=== PATIENT | male | born 1960 | race Caucasian/White ===

== ENCOUNTER → 2017-01-10 | Day surgery (SDC) | payer BC ==
[~2017-01-10] MED LIST: ALLEGRA ALLERGY60 MG PO; FLOVENT 110 MC7.9 GM INH; LISINOPRIL40 MG PO; MIRAPEX1.5 MG PO; SELEGILINE HCL5 M1 PO; SIMVASTATIN10 MG PO; VITAMIN D22000 UNIT PO
== END | disposition home or self-care (01) ==
LOC: OR 06:28
PROVIDERS: Surgery
PROC: 0DJD8ZZ Inspection of Lower Intestinal Tract, Via Natural or Artificial Opening Endoscopic (ICD-10-PCS; 2017-01-10)
PROC: 0DB38ZX Excision of Lower Esophagus, Via Natural or Artificial Opening Endoscopic, Diagnostic (ICD-10-PCS; principal; 2017-01-10 07:30)
PROC: 0DB68ZX Excision of Stomach, Via Natural or Artificial Opening Endoscopic, Diagnostic (ICD-10-PCS; 2017-01-10 07:30)
DX: Z12.11 Encounter for screening for malignant neoplasm of colon (principal); K92.0 Hematemesis; K22.10 Ulcer of esophagus without bleeding; K57.30 Diverticulosis of large intestine without perforation or abscess without bleeding; K44.9 Diaphragmatic hernia without obstruction or gangrene; I10 Essential (primary) hypertension; K21.9 Gastro-esophageal reflux disease without esophagitis; G43.909 Migraine, unspecified, not intractable, without status migrainosus; G20 Parkinson's disease; Z85.828 Personal history of other malignant neoplasm of skin; Z82.49 Family history of ischemic heart disease and other diseases of the circulatory system; Z83.3 Family history of diabetes mellitus; Z82.3 Family history of stroke; Z79.899 Other long term (current) drug therapy; Z90.89 Acquired absence of other organs; Z98.890 Other specified postprocedural states
CPT/HCPCS: 43239; G0121; J7120

== ENCOUNTER → 2022-04-18 | Outpatient (CLI) | payer BC ==
[~2022-04-18] MED LIST changes: +BACTROBAN OINT22 GM EXT; +IBUPROFEN600 MG PO; +NORCO 5-325 TA1 EACH PO
== END ==
LOC: KOH-I 16:18
DX: M25.522 Pain in left elbow (principal); M25.562 Pain in left knee; M25.462 Effusion, left knee
CPT/HCPCS: 73070; 73562